=== PATIENT | male | born 1990 | race Caucasian/White ===

== ENCOUNTER 2018-11-10 20:24 | Emergency (ER) | payer BC ==
[2018-11-10] MEDS ORDERED: predniSONE 20 MG Tab PO STA (20:52)
--- NOTE | 2018-11-10 21:00 | EDM.PDOC ---
ED HPI GENERAL MEDICAL PROBLEM - General Chief Complaint: Neuro Symptoms/Deficits Stated Complaint: LEFT SIDE OF FACE DROOPY LEFT ARM NUMB Time Seen by Provider: 11/10/18 20:31 Source of Information: Reports: Patient, Significant Other (Fiance) History Limitations: Reports: No Limitations - History of Present Illness INITIAL COMMENTS - FREE TEXT/NARRATIVE: The patient states that he developed a posterior headache around 14:30 to 15:00 yesterday, , 11/09/2018. He describes the headache as sharp in character. He did not identify any modifiers. The headache resolved around 45 minutes later. He denies having any associated photophobia or phonophobia, nausea, visual changes, or neurologic symptoms, such as tingling, numbness, or weakness. The patient reports having similar headaches about once a month. He has not previously sought medical evaluation of his headaches, and he did not take any fubn-yey-rnywmyo or home remedies to treat his headache. The patient then developed the sensation like his left face felt weak, around 21 :00 last night. He then felt a tingling and numbness sensation to his left upper extremity, along with the sensation like his left upper cavity was week, around 20:00 tonight. No prior similar symptoms. The patient does not have a PCP. 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 - Related Data Allergies Allergy/AdvReac Type Severity Reaction Status Date / Time No Known Allergies Allergy Verified 11/10/18 20:58 Home Meds: Home Meds predniSONE [Prednisone] 80 mg PO QPM 6 Days #48 tablet 11/10/18 [Rx] Past Medical History Cardiovascular History: Reports: High Cholesterol (untreated) - Past Surgical History HEENT Surgical History: Reports: Myringotomy w Tube(s) (bilateral, x 3), Oral Surgery (wisdom teeth extracted), Tonsillectomy GI Surgical History: Reports: Hernia, Inguinal (x 3 or 4, as a baby) Social & Family History - Tobacco Use Smoking Status *Q: Current Every Day Smoker Years of Tobacco use: 9 Packs/Tins Daily: 0.2 Packs/Tins Daily Comment: Down from 2 ppd - Alcohol Use Alcohol Use History: Yes Alcohol Use Frequency: Socially (rarely to excess) - Recreational Drug Use Recreational Drug Use: Yes Drug Use in Last 12 Months: No Recreational Drug Type: Reports: Marijuana/Hashish (last smoked 15 years old) - Living Situation & Occupation Living situation: Reports: Single, with Significant Other (Fiance) Occupation: Employed ([employer]) ED ROS GENERAL - Review of Systems Review Of Systems: ROS reveals no pertinent complaints other than HPI. ED EXAM, NEURO - Physical Exam Exam: See Below Exam Limited By: No Limitations General Appearance: Alert, WD/WN, No Apparent Distress Eye Exam: Bilateral Eye: EOMI, Normal Inspection, PERRL Ears: Normal External Exam, Hearing Grossly Normal Nose: Normal Inspection Throat/Mouth: Normal Inspection, Normal Lips, Normal Teeth, Normal Gums, Normal Oropharynx, Normal Voice, No Airway Compromise Head Exam: Atraumatic, Normocephalic Neck: Normal Inspection, Full Range of Motion Respiratory/Chest: No Respiratory Distress, Lungs Clear, Normal Breath Sounds, No Accessory Muscle Use Cardiovascular: Normal Peripheral Pulses, Regular Rate, Rhythm, No Edema, No Gallop, No JVD, No Murmur, No Rub GI/Abdominal: Normal Bowel Sounds, Soft, Non-Tender, No Organomegaly, No Distention, No Abnormal Bruit, No Mass (Male) Exam: Circumcised, Deferred Rectal (Males) Exam: Deferred Neurological: Alert, Normal Dorsiflexion, Normal Plantar Flexion, Oriented x 3, Other (Left facial droop includes the left forehead. The patient is able to close both of his eyes without effort) Back Exam: Normal Inspection, Full Range of Motion, NT Extremities: Normal Inspection, Normal Range of Motion, No Pedal Edema, Normal Capillary Refill Psychiatric: Normal Affect Skin Exam: Warm, Dry, Intact, Normal Color, No Rash Course - Vital Signs Last Recorded V/S: Last Vital Signs Temp 36.8 C 11/10/18 20:36 Pulse 77 11/10/18 20:36 Resp 20 11/10/18 20:36 BP 129/84 11/10/18 20:36 Pulse Ox 100 11/10/18 20:36 - Orders/Labs/Meds Orders: Active Orders 24 hr Category Date Time Status predniSONE Med 11/10/18 20:52 Stat 80 mg PO ONETIME STA Medication Orders Prednisone (Prednisone) 80 mg PO ONETIME STA Stop: 11/10/18 20:53 Labs: Laboratory Tests 11/10/18 Range/Units 20:33 POC Glucose 67 L (70-105) mg/dL Meds: Medications Generic Name Dose Route Start Last Admin Trade Name Dago PRN Reason Stop Dose Admin Prednisone 80 mg 11/10/18 20:52 Prednisone PO 11/10/18 20:53 ONETIME STA - Re-Assessments/Exams Free Text/Narrative Re-Assessment/Exam: 11/10/18 20:52 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 I estimate his severity to be a House- Brackmann II or III. While the patient reported that he thought his left upper extremity was weak, on physical exam, his left upper extremity was just as strong as his right. Recommended treatment for Zapata palsy is constantly changing ; currently, the guidelines recommend prednisone 60-80 mg daily for 7 days, but no antiviral unless the House-Brackmann severity is IV or higher, therefore the patient will receive prednisone, but not Valtrex. I would like him to follow-up with a PCP in the clinic this coming week, to monitor his progress. Departure - Departure Time of Disposition: 21:01 Disposition: Home, Self-Care 01 Condition: Good Clinical Impression: Left-sided Zapata's palsy - Discharge Information *PRESCRIPTION DRUG MONITORING PROGRAM REVIEWED*: Not Applicable *COPY OF PRESCRIPTION DRUG MONITORING REPORT IN PATIENT NOEL: Not Applicable Referrals: Oscar Echols MD [Physician] - Additional Instructions: You were seen in the emergency room after developing left facial weakness yesterday. Based on your history and physical examination, you are suffering from left- sided Zapata palsy = dysfunction of the 7th cranial nerve. Based on current guidelines, you have been started on the steroid prednisone. A prescription for prednisone has [facility] located in the [facility] across [address] from the hospital. Take 80 mg of prednisone every evening, starting tomorrow evening, Tuesday, , as prescribed. Finish the entire 6-day prescription, unless told otherwise by a doctor. While on prednisone, do not also take an NSAID, such as aspirin, ibuprofen ( Advil, Motrin), or naproxen (Aleve), as taking a steroid and an NSAID at the same time significantly increases your risk of developing a gastrointestinal bleed. Follow-up with Dr. Oscar Batres, or one of the other providers in the clinic, this coming week, to monitor your progress. If any other problems, please do not hesitate to return to the ER. - My Orders Last 24 Hours: My Active Orders 11/10/18 20:52 predniSONE 80 mg PO ONETIME STA - Assessment/Plan Last 24 Hours: My Active Orders 11/10/18 20:52 predniSONE 80 mg PO ONETIME STA
== END 2018-11-10 21:15 | disposition home or self-care (01) ==
LOC: JD.ED 20:24
DX: G51.0 Bell's palsy (principal); E78.00 Pure hypercholesterolemia, unspecified; F17.210 Nicotine dependence, cigarettes, uncomplicated
CPT/HCPCS: 82962; 99283; A9270